=== PATIENT | male | born 1945 | race Caucasian/White ===

== ENCOUNTER 2017-10-11 08:05 | Observation (INO) | payer MEDICARE, BC ==
[2017-10-11] VITALS (290 sets, daily range): BP systolic 112–144; BP diastolic 66–93; PULSE 78–122; TEMP 97.8–98.4; O2SAT 92–100
[~2017-10-11] VITALS: Ht 185.6 cm; Wt 146.6 kg
[2017-10-11] MEDS ORDERED: FLOMAX 0.40.4 MG/CAP PO (08:29)
[2017-10-11] MEDS ORDERED: ELIQUIS 5MG PO (08:29)
[2017-10-11] MEDS ORDERED: LIPITOR20 MG PO (08:31)
[2017-10-11] MEDS ORDERED: LOPRESSOR 550 MG/TAB PO (08:32)
[2017-10-11] MEDS ORDERED: HCTZ 25MG TAB25 MG PO (08:32)
[2017-10-11] MEDS ORDERED: ALEVE 220MG220 MG PO (08:33)
[2017-10-11] MEDS ORDERED: VITAMINC1000TA PO (08:34)
[2017-10-11] MEDS ORDERED: CRANBERRY500 M3 PO (08:34)
[2017-10-11] MEDS ORDERED: MUCINEX 60600 MG/TA1 PO (08:35)
[2017-10-11] MEDS ORDERED: TYLENOL 500MG500 MG PO (08:35)
[2017-10-11 09:08] LABS: HEMOGLOBIN 10.7 g/dl (13.5-18.0); MEAN CELL VOLUME 94 fl (80.0-100.0); MEAN CORPUSCULAR HEMOGLOBIN 32 pg (27.0-31.0); MEAN CORPUSCULAR HGB CONC 34 g/dl (33.0-37.0); MEAN PLATELET VOLUME 9.2 fl (7.4-10.4); PLATELET COUNT 150 K/mm3 (130-400); RED BLOOD COUNT 3.34 M/mm3 (4.20-5.60); REDCELL DISTRIBUTION WIDTH-CV 12.8 % (11.5-14.5)
[2017-10-11 09:11] LABS: HEMATOCRIT 31.4 % (42.0-52.0)
[2017-10-11 09:13] LABS: INR 1.1 (0.8-3.0); PROTHROMBIN TIME 12.9 SECONDS (9.7-12.8)
[2017-10-11 09:16] LABS: CALCIUM 8.9 mg/dL (8.4-10.2); CREATININE, serum 0.93 mg/dL (0.66-1.25); POTASSIUM 4.5 mmol/L (3.4-5.0)
[2017-10-12] VITALS (512 sets, daily range): BP systolic 111–120; BP diastolic 61–86; PULSE 74–101; TEMP 97.3–98.4; O2SAT 87–99
[2017-10-12 06:05] LABS: BASO % 0.4 % (0.0-2.0); EOS # 0.1 (0.0-0.7); EOS % 0.8 % (0-4.0); GRAN # 5.3 (1.4-6.5); GRAN % 69.3 % (42.2-75.2); LYMPH # 1.7 (1.2-3.4); LYMPH % 22.5 % (20.0-51.0); MEAN CELL VOLUME 94 fl (80.0-100.0); MEAN CORPUSCULAR HGB CONC 34 g/dl (33.0-37.0); MEAN PLATELET VOLUME 9.9 fl (7.4-10.4); MONO # 0.5 (0.1-0.6); MONO % 6.7 % (1.7-9.3); PLATELET COUNT 164 K/mm3 (130-400); RED BLOOD COUNT 3.04 M/mm3 (4.20-5.60); REDCELL DISTRIBUTION WIDTH-CV 12.8 % (11.5-14.5)
[2017-10-12 06:07] LABS: HEMATOCRIT 28.5 % (42.0-52.0); HEMOGLOBIN 9.7 g/dl (13.5-18.0); MEAN CORPUSCULAR HEMOGLOBIN 32 pg (27.0-31.0)
[2017-10-12 06:20] LABS: CALCIUM 8.4 mg/dL (8.4-10.2); CREATININE, serum 0.82 mg/dL (0.66-1.25); MAGNESIUM 1.6 mg/dL (1.6-2.3); POTASSIUM 3.5 mmol/L (3.4-5.0)
[2017-10-12] MEDS ORDERED: BRILINTA90 MG PO (10:48)
[2017-10-12] MEDS ORDERED: ASPIRIN 81M81 MG/TA2 PO (10:49)
== END 2017-10-12 13:35 | disposition home or self-care (01) ==
LOC: COL.CAR 08:05 → INPTSU 13:12 → ICU 18:45
PROVIDERS: Internal Medicine Cardiovascular Disease
DX: I25.110 Atherosclerotic heart disease of native coronary artery with unstable angina pectoris (principal); R94.39 Abnormal result of other cardiovascular function study; E78.00 Pure hypercholesterolemia, unspecified; I48.0 Paroxysmal atrial fibrillation; Z79.01 Long term (current) use of anticoagulants; Z95.5 Presence of coronary angioplasty implant and graft; Z88.0 Allergy status to penicillin; Z82.49 Family history of ischemic heart disease and other diseases of the circulatory system
CPT/HCPCS: C1725; C1769; C1874; C1887; C9600; G0378; G0379; J0583; J1644; J2250; J3010; J7030; Q9967

== ENCOUNTER 2017-12-20 19:06 | Inpatient (IN) | payer MEDICARE, BC ==
[2017-12-20] VITALS (92 sets, daily range): BP systolic 117; BP diastolic 70; PULSE 86; TEMP 97.7; O2SAT 97–100
[~2017-12-20] VITALS: Ht 185.4 cm; Wt 144.4 kg
[~2017-12-20 19:06] MED LIST: ALEVE 220MG220 MG PO; ASPIRIN 81M81 MG/TA2 PO; BRILINTA90 MG PO; CRANBERRY500 M3 PO; ELIQUIS 5MG PO; FLOMAX 0.40.4 MG/CAP PO; HCTZ 25MG TAB25 MG PO; LIPITOR20 MG PO; LOPRESSOR 550 MG/TAB PO; MUCINEX 60600 MG/TA1 PO; TYLENOL 500MG500 MG PO; VITAMINC1000TA PO
[2017-12-20] MEDS ORDERED: LANOXIN 0.25M0.25 MG PO (21:54)
[2017-12-20] MEDS ORDERED: PLAVIX 75MG TAB75 MG PO (21:54)
[2017-12-20] MEDS ORDERED: BENADRYL25 M2 PO (21:55)
[2017-12-20] MEDS ORDERED: FLONASEALLERGY NS (21:56)
[2017-12-20] MEDS ORDERED: VENTOLIN0.09 MG IH (21:57)
[2017-12-21] VITALS (432 sets, daily range): BP systolic 98–160; BP diastolic 56–88; PULSE 42–78; TEMP 97.2–98.1; O2SAT 60–100
[2017-12-21 01:45] LABS: TROPONIN-I < 0.012 ng/mL (0.000-0.034)
[2017-12-21 06:01] LABS: BASO % 0.2 % (0.0-2.0); EOS # 0.1 (0.0-0.7); EOS % 0.9 % (0-4.0); GRAN # 6.2 (1.4-6.5); HEMOGLOBIN 11.9 g/dl (13.5-18.0); LYMPH # 1.9 (1.2-3.4); LYMPH % 20.7 % (20.0-51.0); MEAN CELL VOLUME 92 fl (80.0-100.0); MEAN CORPUSCULAR HEMOGLOBIN 30 pg (27.0-31.0); MEAN CORPUSCULAR HGB CONC 32 g/dl (33.0-37.0); MEAN PLATELET VOLUME 9.3 fl (7.4-10.4); MONO # 0.7 (0.1-0.6); MONO % 7.8 % (1.7-9.3); PLATELET COUNT 180 K/mm3 (130-400); RED BLOOD COUNT 3.97 M/mm3 (4.20-5.60); REDCELL DISTRIBUTION WIDTH-CV 12.7 % (11.5-14.5)
[2017-12-21 06:02] LABS: HEMATOCRIT 36.7 % (42.0-52.0)
[2017-12-21 06:11] LABS: ANION GAP 9 mmol/L (7-16); BLOOD UREA NITROGEN 17 mg/dL (9-20); CALCIUM 8.4 mg/dL (8.4-10.2); CARBON DIOXIDE 26 mmol/L (22-30); CHLORIDE 105 mmol/L (98-107); CHOLESTEROL 119 mg/dL (120-200); CHOLESTEROL RISK RATIO 3.8; CREATININE, serum 0.91 mg/dL (0.66-1.25); GLUCOSE 94 mg/dL (74-106); HDL CHOLESTEROL 31 mg/dL; LDL CHOLESTEROL 63 mg/dL; POTASSIUM 4.6 mmol/L (3.4-5.0); SODIUM 140 mmol/L (137-145); TRIGLYCERIDE 124 mg/dL
[2017-12-21 06:28] LABS: TROPONIN-I < 0.012 ng/mL (0.000-0.034)
[2017-12-22] VITALS (607 sets, daily range): BP systolic 124–164; BP diastolic 65–93; PULSE 46–76; TEMP 97.9–98.1; O2SAT 69–100
[2017-12-22 05:54] LABS: BASO % 0.3 % (0.0-2.0); EOS # 0.1 (0.0-0.7); EOS % 0.9 % (0-4.0); GRAN # 6.7 (1.4-6.5); GRAN % 76.2 % (42.2-75.2); HEMOGLOBIN 11.9 g/dl (13.5-18.0); LYMPH # 1.3 (1.2-3.4); LYMPH % 14.8 % (20.0-51.0); MEAN CELL VOLUME 91 fl (80.0-100.0); MEAN CORPUSCULAR HEMOGLOBIN 30 pg (27.0-31.0); MEAN CORPUSCULAR HGB CONC 33 g/dl (33.0-37.0); MEAN PLATELET VOLUME 8.7 fl (7.4-10.4); MONO # 0.6 (0.1-0.6); MONO % 7.3 % (1.7-9.3); PLATELET COUNT 173 K/mm3 (130-400); RED BLOOD COUNT 3.95 M/mm3 (4.20-5.60); REDCELL DISTRIBUTION WIDTH-CV 12.7 % (11.5-14.5)
[2017-12-22 06:07] LABS: CALCIUM 8.2 mg/dL (8.4-10.2); CREATININE, serum 0.97 mg/dL (0.66-1.25); POTASSIUM 4.1 mmol/L (3.4-5.0)
[2017-12-22] MEDS ORDERED: LOPRESSOR 550 MG/TAB PO (12:30)
== END 2017-12-22 13:45 | disposition home or self-care (01) | DRG 247 ==
LOC: IMCU 19:06 → ICU 20:22
PROVIDERS: Nurse Practitioner
PROC: 0270346 Dilation of Coronary Artery, One Artery, Bifurcation, with Drug-eluting Intraluminal Device, Percutaneous Approach (ICD-10-PCS; principal; 2017-12-21)
PROC: B2111ZZ Fluoroscopy of Multiple Coronary Arteries using Low Osmolar Contrast (ICD-10-PCS; 2017-12-21)
DX: I25.110 Atherosclerotic heart disease of native coronary artery with unstable angina pectoris (principal); I48.2 Chronic atrial fibrillation; I10 Essential (primary) hypertension; Z95.5 Presence of coronary angioplasty implant and graft; Z79.01 Long term (current) use of anticoagulants; L89.222 Pressure ulcer of left hip, stage 2
CPT/HCPCS: 99223-AI; 99233-AI; 99239; C1760; C1769; C1874; C1887; C1894; C9600; J0583; J1644; J2250; J3010; J3370; J7050; Q9967

== ENCOUNTER 2018-02-27 08:17 | Inpatient (IN) | payer MEDICARE, BC ==
[~2018-02-27] VITALS: Ht 185.4 cm; Wt 134.6 kg
[2018-02-27] VITALS (630 sets, daily range): BP systolic 97–158; BP diastolic 64–86; PULSE 53–100; TEMP 97.8–98.1; O2SAT 73–100
[~2018-02-27 08:17] MED LIST changes: +BENADRYL25 M2 PO; +FLONASEALLERGY NS; +LANOXIN 0.25M0.25 MG PO; +PLAVIX 75MG TAB75 MG PO; +VENTOLIN0.09 MG IH
[2018-02-27 08:56] LABS: BASO % 0.4 % (0.0-2.0); EOS # 0.1 (0.0-0.7); EOS % 0.6 % (0-4.0); GRAN # 5.9 (1.4-6.5); GRAN % 74.5 % (42.2-75.2); HEMATOCRIT 42.4 % (42.0-52.0); HEMOGLOBIN 13.5 g/dl (13.5-18.0); LYMPH # 1.4 (1.2-3.4); LYMPH % 18.1 % (20.0-51.0); MEAN CELL VOLUME 90 fl (80.0-100.0); MEAN CORPUSCULAR HEMOGLOBIN 29 pg (27.0-31.0); MEAN CORPUSCULAR HGB CONC 32 g/dl (33.0-37.0); MEAN PLATELET VOLUME 9.2 fl (7.4-10.4); MONO # 0.5 (0.1-0.6); MONO % 6.1 % (1.7-9.3); PLATELET COUNT 178 K/mm3 (130-400); RED BLOOD COUNT 4.71 M/mm3 (4.20-5.60); REDCELL DISTRIBUTION WIDTH-CV 13.4 % (11.5-14.5)
[2018-02-27 08:57] LABS: INR 2.7 (0.8-3.0); PROTHROMBIN TIME 30.6 SECONDS (9.7-12.8)
[2018-02-27 09:11] LABS: ALANINE AMINOTRANSFERASE 32 U/L (21-72); ALBUMIN 3.6 gm/dL (3.5-5.0); ALKALINE PHOSPHATASE 72 U/L (50-136); ANION GAP 5 mmol/L (7-16); AST,SGOT 44 U/L (15-37); BILIRUBIN,TOTAL 0.6 mg/dL (0.0-1.0); BLOOD UREA NITROGEN 16 mg/dL (9-20); CALCIUM 8.5 mg/dL (8.4-10.2); CARBON DIOXIDE 30 mmol/L (22-30); CHLORIDE 101 mmol/L (98-107); CREATININE, serum 0.96 mg/dL (0.66-1.25); GLUCOSE 95 mg/dL (74-106); LIPASE 104 U/L (23-300); POTASSIUM 4.2 mmol/L (3.4-5.0); SODIUM 137 mmol/L (137-145)
[2018-02-27 09:22] LABS: TROPONIN-I < 0.012 ng/mL (0.000-0.034)
[2018-02-27] MEDS ORDERED: PRILOSEC 20MG20 MG PO (09:26)
[2018-02-27] MEDS ORDERED: COUMADIN 5MG5 MG/TAB PO (09:27)
[2018-02-27] MEDS ORDERED: BENADRYL25 M2 PO (09:28)
[2018-02-27] MEDS ORDERED: LANOXIN 0.120.125 MG PO (09:29)
[2018-02-28] VITALS (338 sets, daily range): BP systolic 88–151; BP diastolic 53–87; PULSE 42–127; TEMP 97.5–98.5; O2SAT 88–100
[2018-02-28 05:56] LABS: BASO % 0.3 % (0.0-2.0); EOS # 0.1 (0.0-0.7); GRAN # 4.9 (1.4-6.5); GRAN % 69.2 % (42.2-75.2); HEMATOCRIT 39.3 % (42.0-52.0); HEMOGLOBIN 12.9 g/dl (13.5-18.0); LYMPH # 1.6 (1.2-3.4); LYMPH % 21.9 % (20.0-51.0); MEAN CELL VOLUME 89 fl (80.0-100.0); MEAN CORPUSCULAR HEMOGLOBIN 29 pg (27.0-31.0); MEAN CORPUSCULAR HGB CONC 33 g/dl (33.0-37.0); MEAN PLATELET VOLUME 9.2 fl (7.4-10.4); MONO # 0.5 (0.1-0.6); MONO % 7.3 % (1.7-9.3); PLATELET COUNT 158 K/mm3 (130-400); RED BLOOD COUNT 4.42 M/mm3 (4.20-5.60); REDCELL DISTRIBUTION WIDTH-CV 13.3 % (11.5-14.5)
[2018-02-28 06:02] LABS: INR 2.7 (0.8-3.0); PROTHROMBIN TIME 30.7 SECONDS (9.7-12.8)
[2018-02-28 06:11] LABS: ANION GAP 3 mmol/L (7-16); BLOOD UREA NITROGEN 14 mg/dL (9-20); CALCIUM 8.4 mg/dL (8.4-10.2); CARBON DIOXIDE 30 mmol/L (22-30); CHLORIDE 103 mmol/L (98-107); CREATININE, serum 0.81 mg/dL (0.66-1.25); GLUCOSE 90 mg/dL (74-106); POTASSIUM 3.9 mmol/L (3.4-5.0); SODIUM 136 mmol/L (137-145)
[2018-02-28 06:21] LABS: TROPONIN-I < 0.012 ng/mL (0.000-0.034)
[2018-02-28] MEDS ORDERED: PROTONIX 40MG T40 MG PO (11:18)
[2018-02-28] MEDS ORDERED: LOPRESSOR 225 MG/TAB PO (11:18)
[2018-02-28] MEDS ORDERED: NORVASC 5MG5 MG/TAB PO (11:20)
== END 2018-02-28 13:38 | disposition home or self-care (01) | DRG 313 ==
LOC: COL.ER 08:17 → ICU 10:51
PROVIDERS: Emergency Medicine; Physician Assistant
DX: R07.9 Chest pain, unspecified (principal); I48.1 Persistent atrial fibrillation; I42.0 Dilated cardiomyopathy; I25.10 Atherosclerotic heart disease of native coronary artery without angina pectoris; Z79.01 Long term (current) use of anticoagulants; Z23 Encounter for immunization; Z95.5 Presence of coronary angioplasty implant and graft; I10 Essential (primary) hypertension; E78.5 Hyperlipidemia, unspecified; N40.0 Benign prostatic hyperplasia without lower urinary tract symptoms
CPT/HCPCS: 99222-AI; 99239; A9502; J2785

== ENCOUNTER 2018-03-15 15:48 | Observation (INO) | payer MEDICARE, BC ==
[~2018-03-15] VITALS: Ht 185.4 cm; Wt 140.2 kg
[~2018-03-15 15:48] MED LIST changes: +COUMADIN 5MG5 MG/TAB PO; +LANOXIN 0.120.125 MG PO; +LOPRESSOR 225 MG/TAB PO; +NORVASC 5MG5 MG/TAB PO; +PRILOSEC 20MG20 MG PO; +PROTONIX 40MG T40 MG PO
[2018-03-15 15:59] VITALS: BP 116/61; PULSE 77; TEMP 98.1
[2018-03-15] MEDS ORDERED: COUMADIN 22.5 MG/TAB PO (17:06)
[2018-03-15] MEDS ORDERED: TOPROL XL 25MG25 MG PO (17:07)
[2018-03-15] MEDS ORDERED: PRIL40 PO (17:07)
[2018-03-15] MEDS ORDERED: MUCINEX1200 MG PO (17:08)
[2018-03-15 17:24] LABS: BASO % 0.3 % (0.0-2.0); EOS % 0.3 % (0-4.0); GRAN # 5.7 (1.4-6.5); GRAN % 71.8 % (42.2-75.2); HEMOGLOBIN 11.4 g/dl (13.5-18.0); LYMPH # 1.2 (1.2-3.4); LYMPH % 15.8 % (20.0-51.0); MEAN CELL VOLUME 91 fl (80.0-100.0); MEAN CORPUSCULAR HEMOGLOBIN 29 pg (27.0-31.0); MEAN CORPUSCULAR HGB CONC 32 g/dl (33.0-37.0); MEAN PLATELET VOLUME 8.8 fl (7.4-10.4); MONO # 0.9 (0.1-0.6); MONO % 11.5 % (1.7-9.3); PLATELET COUNT 137 K/mm3 (130-400); RED BLOOD COUNT 3.96 M/mm3 (4.20-5.60); REDCELL DISTRIBUTION WIDTH-CV 13.5 % (11.5-14.5)
[2018-03-15 17:25] LABS: HEMATOCRIT 36.2 % (42.0-52.0)
[2018-03-15] MEDS ORDERED: METOPROLOL TART75 MG PO (17:28)
[2018-03-15 17:36] LABS: ALBUMIN 3.2 gm/dL (3.5-5.0); BILIRUBIN,TOTAL 1.1 mg/dL (0.0-1.0); CREATININE, serum 0.96 mg/dL (0.66-1.25); POTASSIUM 4.2 mmol/L (3.4-5.0); TOTAL PROTEIN 6.3 gm/dL (6.4-8.2)
[2018-03-15 17:57] LABS: TROPONIN-I 1.48 ng/mL (0.000-0.034)
[2018-03-15 19:01] VITALS: BP 125/64; PULSE 81; TEMP 99
[2018-03-16 00:15] VITALS: BP 122/65; PULSE 75
[2018-03-16 04:20] VITALS: BP 117/77; PULSE 66
[2018-03-16 06:22] LABS: BASO % 0.3 % (0.0-2.0); EOS # 0.1 (0.0-0.7); EOS % 1.1 % (0-4.0); GRAN # 4.3 (1.4-6.5); GRAN % 65.6 % (42.2-75.2); HEMOGLOBIN 10.8 g/dl (13.5-18.0); LYMPH # 1.5 (1.2-3.4); LYMPH % 22.1 % (20.0-51.0); MEAN CELL VOLUME 92 fl (80.0-100.0); MEAN CORPUSCULAR HEMOGLOBIN 29 pg (27.0-31.0); MEAN CORPUSCULAR HGB CONC 32 g/dl (33.0-37.0); MEAN PLATELET VOLUME 9.4 fl (7.4-10.4); MONO # 0.7 (0.1-0.6); MONO % 10.6 % (1.7-9.3); PLATELET COUNT 150 K/mm3 (130-400); RED BLOOD COUNT 3.73 M/mm3 (4.20-5.60); REDCELL DISTRIBUTION WIDTH-CV 13.6 % (11.5-14.5)
[2018-03-16 06:24] LABS: INR 2.9 (0.8-3.0); PROTHROMBIN TIME 33.5 SECONDS (9.7-12.8)
[2018-03-16 06:26] LABS: HEMATOCRIT 34.2 % (42.0-52.0)
[2018-03-16 06:34] LABS: CALCIUM 8.1 mg/dL (8.4-10.2); CHOLESTEROL RISK RATIO 3.2; CREATININE, serum 0.92 mg/dL (0.66-1.25); POTASSIUM 4.4 mmol/L (3.4-5.0)
[2018-03-16 07:15] LABS: TROPONIN-I 0.837 ng/mL (0.000-0.034)
[2018-03-16 08:00] VITALS: BP 123/68; PULSE 68; TEMP 98.1
[2018-03-16 08:30] VITALS: BP 114/62; PULSE 64; TEMP 97.5
[2018-03-16] MEDS ORDERED: IBU400 MG PO (09:54)
== END 2018-03-16 11:31 | disposition home or self-care (01) ==
LOC: MEDICAL 15:48
PROVIDERS: Physician Assistant
DX: R07.9 Chest pain, unspecified (principal); I48.91 Unspecified atrial fibrillation; I25.10 Atherosclerotic heart disease of native coronary artery without angina pectoris; I89.0 Lymphedema, not elsewhere classified; I10 Essential (primary) hypertension; E78.5 Hyperlipidemia, unspecified; N40.0 Benign prostatic hyperplasia without lower urinary tract symptoms; K21.9 Gastro-esophageal reflux disease without esophagitis; Z95.5 Presence of coronary angioplasty implant and graft; Z79.02 Long term (current) use of antithrombotics/antiplatelets; Z90.49 Acquired absence of other specified parts of digestive tract; Z79.01 Long term (current) use of anticoagulants; Z88.0 Allergy status to penicillin; Z80.1 Family history of malignant neoplasm of trachea, bronchus and lung; Z82.49 Family history of ischemic heart disease and other diseases of the circulatory system
CPT/HCPCS: G0378

== ENCOUNTER 2018-04-20 07:16 | Day surgery (SDC) | payer MEDICARE, BC ==
[~2018-04-20 07:16] MED LIST changes: +COUMADIN 22.5 MG/TAB PO; +IBU400 MG PO; +METOPROLOL TART75 MG PO; +MUCINEX1200 MG PO; +PRIL40 PO; +TOPROL XL 25MG25 MG PO
[2018-04-20 08:39] VITALS: BP 117/63; PULSE 52; TEMP 97.4
[2018-04-20 10:05] VITALS: BP 133/72; PULSE 52
[2018-04-20 10:20] VITALS: BP 135/70; PULSE 56; TEMP 97.8
== END 2018-04-20 11:27 | disposition home or self-care (01) ==
LOC: COL.CAR 07:16
DX: I48.0 Paroxysmal atrial fibrillation (principal); I25.10 Atherosclerotic heart disease of native coronary artery without angina pectoris; I10 Essential (primary) hypertension; Z95.5 Presence of coronary angioplasty implant and graft; Z79.899 Other long term (current) drug therapy; Z79.01 Long term (current) use of anticoagulants; Z79.02 Long term (current) use of antithrombotics/antiplatelets; E66.01 Morbid (severe) obesity due to excess calories; E78.00 Pure hypercholesterolemia, unspecified

== ENCOUNTER 2018-06-18 09:04 | Outpatient (RCR) | payer MEDICARE, BC ==
[2018-07-24] MEDS ORDERED: TOPROL XL100 MG PO (12:54)
[2018-07-24] MEDS ORDERED: TOPROL XL 25MG25 MG PO ×2 (12:54→14:29)
[2018-07-24] MEDS ORDERED: PROTONIX 40MG T40 MG PO (12:55)
[2018-07-24] MEDS ORDERED: PACERONE400 MG PO (14:23)
== END 2018-09-16 | disposition home or self-care (01) ==
LOC: WSST
DX: R13.13 Dysphagia, pharyngeal phase (principal)

== ENCOUNTER → 2018-07-03 | Outpatient (CLI) | payer MEDICARE, BC | LOC: COL.RAD 11:58 | DX: R13.10 Dysphagia, unspecified (principal) ==

== ENCOUNTER 2018-07-24 11:41 | Day surgery (SDC) | payer MEDICARE, BC ==
[~2018-07-24] VITALS: Ht 185.4 cm; Wt 130.0 kg
[2018-07-24 12:46] LABS: HEMATOCRIT 42.9 % (42.0-52.0); HEMOGLOBIN 13.8 g/dl (13.5-18.0); MEAN CELL VOLUME 95 fl (80.0-100.0); MEAN CORPUSCULAR HEMOGLOBIN 30 pg (27.0-31.0); MEAN CORPUSCULAR HGB CONC 32 g/dl (33.0-37.0); MEAN PLATELET VOLUME 9.3 fl (7.4-10.4); PLATELET COUNT 153 K/mm3 (130-400); RED BLOOD COUNT 4.54 M/mm3 (4.20-5.60); REDCELL DISTRIBUTION WIDTH-CV 12.8 % (11.5-14.5)
[2018-07-24] MEDS ORDERED: TOPROL XL 25MG25 MG PO ×2 (12:54→14:29)
[2018-07-24] MEDS ORDERED: TOPROL XL100 MG PO (12:54)
[2018-07-24 12:55] VITALS: BP 125/84; PULSE 85
[2018-07-24] MEDS ORDERED: PROTONIX 40MG T40 MG PO (12:55)
[2018-07-24 13:06] LABS: CALCIUM 8.9 mg/dL (8.4-10.2); CREATININE, serum 1.01 mg/dL (0.66-1.25); POTASSIUM 4.9 mmol/L (3.4-5.0)
[2018-07-24 13:40] LABS: INR 2.3 (0.8-3.0); PROTHROMBIN TIME 25.8 SECONDS (9.7-12.8)
[2018-07-24] MEDS ORDERED: PACERONE400 MG PO (14:23)
[2018-07-24 14:40] VITALS: BP 124/74; PULSE 49
--- NOTE | 2018-07-24 14:40 | NUR ---
Pt returned to EU 11 per bed s/p BURAK/CV. Pt resting well in bed, at bedside.
[2018-07-24 14:55] VITALS: BP 129/76; PULSE 50
[2018-07-24 15:10] VITALS: BP 138/79; PULSE 46
[2018-07-24 15:25] VITALS: BP 134/80; PULSE 47; TEMP 97
[2018-07-24 15:40] VITALS: BP 142/90; PULSE 68
--- NOTE | 2018-07-24 15:40 | NUR ---
Pt has ambulated and troy PO intake s n/v. PIV removed from R AC with catheter intact.
--- NOTE | 2018-07-24 16:00 | NUR ---
Pt discharged per w/c by nurse with .
== END 2018-07-24 16:06 | disposition home or self-care (01) ==
LOC: COL.CAR 11:41
PROVIDERS: Internal Medicine Cardiovascular Disease
DX: I48.1 Persistent atrial fibrillation (principal); I10 Essential (primary) hypertension; E78.5 Hyperlipidemia, unspecified; I25.10 Atherosclerotic heart disease of native coronary artery without angina pectoris; I34.0 Nonrheumatic mitral (valve) insufficiency; I42.0 Dilated cardiomyopathy; E66.01 Morbid (severe) obesity due to excess calories; M19.90 Unspecified osteoarthritis, unspecified site; Z88.0 Allergy status to penicillin; Z90.49 Acquired absence of other specified parts of digestive tract; Z79.02 Long term (current) use of antithrombotics/antiplatelets; Z79.01 Long term (current) use of anticoagulants; Z68.39 Body mass index [BMI] 39.0-39.9, adult
CPT/HCPCS: J2704

== ENCOUNTER 2020-01-14 11:11 | Inpatient (IN) | payer MEDICARE, BC ==
[~2020-01-14] VITALS: Ht 185.4 cm; Wt 122.7 kg
[~2020-01-14 11:11] MED LIST changes: +PACERONE400 MG PO; +TOPROL XL100 MG PO
[2020-01-14] MEDS ORDERED: TYLENOL 8 HR PO ×2 (11:34→16:01)
[2020-01-14] MEDS ORDERED: BENADRYL25 M2 PO (11:34)
[2020-01-14 11:38] LABS: BASO % 0.3 % (0.0-2.0); EOS % 0.2 % (0-4.0); GRAN # 6.2 (1.4-6.5); GRAN % 69.9 % (42.2-75.2); HEMATOCRIT 43.4 % (42.0-52.0); HEMOGLOBIN 14.5 g/dl (13.5-18.0); LYMPH # 2.1 (1.2-3.4); LYMPH % 23.9 % (20.0-51.0); MEAN CELL VOLUME 96 fl (80.0-100.0); MEAN CORPUSCULAR HEMOGLOBIN 32 pg (27.0-31.0); MEAN CORPUSCULAR HGB CONC 33 g/dl (33.0-37.0); MEAN PLATELET VOLUME 9.2 fl (7.4-10.4); MONO # 0.5 (0.1-0.6); MONO % 5.4 % (1.7-9.3); PLATELET COUNT 196 K/mm3 (130-400); RED BLOOD COUNT 4.53 M/mm3 (4.20-5.60); REDCELL DISTRIBUTION WIDTH-CV 12.6 % (11.5-14.5)
[2020-01-14 11:46] LABS: INR 1.1 (0.8-3.0); PROTHROMBIN TIME 11.8 SECONDS (9.7-12.8)
[2020-01-14 11:48] LABS: BILIRUBIN,TOTAL 0.7 mg/dL (0.0-1.0); CREATININE, serum 1.09 (0.66-1.25); PARTIAL THROMBOPLASTIN TIME 35.6 SECONDS (26.0-37.0); POTASSIUM 4.5 mmol/L (3.4-5.0); TOTAL PROTEIN 7.2 gm/dL (6.4-8.2)
[2020-01-14 12:02] LABS: TROPONIN-I 0.041 ng/mL (0.000-0.035)
[2020-01-14 12:18] LABS: TSH w REFLEX 1.07 uIU/mL (0.465-4.680)
[2020-01-14] MEDS ORDERED: PROSCAR 5MG5 MG PO (16:03)
[2020-01-14] MEDS ORDERED: ASPIRIN E.C. 8181 MG PO (16:04)
[2020-01-14 17:06] VITALS: BP 137/67; PULSE 92; TEMP 97.8
--- NOTE | 2020-01-14 17:19 | NUR ---
Pt up to room 358, pt is A&O, independent in room. Pt on tele, afib. Pt denies chest pain, N/V/D, dizziness, SOB. Pt on room air. LAC INT IV flushes w/o complications. HR irregular. Pulses strong bilaterally. LS cta. 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 Feet cool to touch, pulses palpable. Open ulcer covered w/ dressing to Lt hip "from where my belt rubs" per pt. BS active. No further needs expressed at this time. Admission completed.
[2020-01-14 20:53] VITALS: BP 124/73; PULSE 53; TEMP 98.3
--- NOTE | 2020-01-14 21:30 | NUR ---
Troponin increased from 0.049 to 0.060. Notified SORIN Carias. No new orders at this time.
--- NOTE | 2020-01-14 23:41 | NUR ---
Pt resting in bed, denies any pain. Left lower extremity lymphedema, pt states not much feeling in the left leg. left pedal pulses diminished but palpable. Heart sounds regular with S1 and S2 present. lung sounds are clear in all lobes. no other needs at this time.
[2020-01-15] VITALS (10 sets, daily range): BP systolic 101–147; BP diastolic 50–82; PULSE 58–108; TEMP 97.1–98.3
--- NOTE | 2020-01-15 05:27 | NUR ---
Pt sleeping in bed most of the night, did not call for any needs. pt checked on throughout the night and found to be sleeping, will continue to monitor.
[2020-01-15 07:28] LABS: BASO % 0.3 % (0.0-2.0); EOS # 0.1 (0.0-0.7); EOS % 0.8 % (0-4.0); GRAN # 4.3 (1.4-6.5); GRAN % 65.8 % (42.2-75.2); HEMATOCRIT 40.2 % (42.0-52.0); HEMOGLOBIN 13.3 g/dl (13.5-18.0); LYMPH # 1.7 (1.2-3.4); LYMPH % 25.8 % (20.0-51.0); MEAN CELL VOLUME 96 fl (80.0-100.0); MEAN CORPUSCULAR HEMOGLOBIN 32 pg (27.0-31.0); MEAN CORPUSCULAR HGB CONC 33 g/dl (33.0-37.0); MEAN PLATELET VOLUME 9.3 fl (7.4-10.4); MONO # 0.5 (0.1-0.6); MONO % 7.1 % (1.7-9.3); PLATELET COUNT 168 K/mm3 (130-400); RED BLOOD COUNT 4.19 M/mm3 (4.20-5.60); REDCELL DISTRIBUTION WIDTH-CV 12.5 % (11.5-14.5)
[2020-01-15 07:37] LABS: CALCIUM 8.5 mg/dL (8.4-10.2); CREATININE, serum 0.96 (0.66-1.25); MAGNESIUM 1.8 mg/dL (1.6-2.3); POTASSIUM 4.5 mmol/L (3.4-5.0)
--- NOTE | 2020-01-15 11:19 | NUR ---
SW met with the patient to discuss discharge plan. The patient lives in [place] with his , Jenna (ph#[phone]). He reports independence with ADLs and has a cane. The patient's PCP is Dr. Nav Tovar and he receives his medications at [facility] in [place]. He reports no difficulties obtaining his meds. The patient's DPOA-HC is in EMR. His DPOA-HC is his and daughter, Gabbie Barker. The patient plans to return home with his upon discharge. No additional needs at this time.
--- NOTE | 2020-01-15 12:55 | NUR ---
Pt assessment completed and charted. Medications administered per JUL. Pt sitting in bed at this time. A&O, independent in room. Pt has LAC INT IV that flushes w/o difficulty. On room air, breathing is even and unlabored, denies SOB, dizziness, N/V/D. Pulses strong bilaterally. LS cta. LLE w/ chronic lymphadema present, pulse palpable. RLE 2+ edema noted, pulse strong. BS active. Pt had stress test this morning, tolerated well, planning for cardioversion tomorrow. Lt hip ulcer, covered w/ dressing. No further needs expressed at this time. Call light within reach.
--- NOTE | 2020-01-15 19:32 | NUR ---
Pt has had uneventful day. provided w/ toiletries upon request. mag replaced. no further needs. Consent signed for cardioversion tomorrow. report given to JOSE Pedroza.
--- NOTE | 2020-01-15 22:46 | NUR ---
Pt resting in bed, denies pain. lower left leg lymphedema, pt states that there is no feeling in that leg. heart sounds are regular and bradycardic in the 60s. pt denies chest pain or shortness of breath. lung sounds are clear in all lobes. no other needs at this time.
[2020-01-16] VITALS (7 sets, daily range): BP systolic 100–123; BP diastolic 54–71; PULSE 46–91; TEMP 97.5–98
--- NOTE | 2020-01-16 05:21 | NUR ---
Pt sleeping in bed most of the night, did not call for any needs. checked on throughout the night. no needs at this time.
[2020-01-16 07:38] LABS: BASO % 0.3 % (0.0-2.0); EOS % 0.6 % (0-4.0); GRAN # 4.1 (1.4-6.5); GRAN % 65.6 % (42.2-75.2); HEMATOCRIT 41.2 % (42.0-52.0); HEMOGLOBIN 13.7 g/dl (13.5-18.0); LYMPH # 1.7 (1.2-3.4); LYMPH % 26.2 % (20.0-51.0); MEAN CELL VOLUME 96 fl (80.0-100.0); MEAN CORPUSCULAR HEMOGLOBIN 32 pg (27.0-31.0); MEAN CORPUSCULAR HGB CONC 33 g/dl (33.0-37.0); MEAN PLATELET VOLUME 9.6 fl (7.4-10.4); MONO # 0.4 (0.1-0.6); PLATELET COUNT 166 K/mm3 (130-400); REDCELL DISTRIBUTION WIDTH-CV 12.8 % (11.5-14.5)
[2020-01-16 07:50] LABS: CALCIUM 8.5 mg/dL (8.4-10.2); CREATININE, serum 0.86 (0.66-1.25); MAGNESIUM 2.1 mg/dL (1.6-2.3); POTASSIUM 4.2 mmol/L (3.4-5.0)
--- NOTE | 2020-01-16 08:15 | NUR ---
Pt assessment complete. Pt is A/O x4. His breathing is even and unlabored on RA. Pt denies SOB. No chest pain reported. Pt denies palpitations. No dizziness. POC discussed with patient who verbalizes understanding. No needs at this time. Call light within reach.
--- NOTE | 2020-01-16 09:06 | NUR ---
Initial visit; Patient thanked Hedge Fund Manager for looking in on him and keeping him in her prayers. Patient hopes to be discharged today. Hedge Fund Manager wished him well.
[2020-01-16] MEDS ORDERED: BETAPACE 80MG80 MG PO (11:47)
--- NOTE | 2020-01-16 15:00 | NUR ---
Discharge paperwork and instructions reviewed with patient. All questions answered at this time. IV to LAC dc'd catheter tip intact. Pt wheeled out of facility at this time.
== END 2020-01-16 15:15 | disposition home or self-care (01) | DRG 282 ==
LOC: COL.ER 11:11 → MEDICAL 13:57
PROVIDERS: Emergency Medicine; ADMIT Student in an Organized Health Care Education/Training Program
PROC: 5A2204Z Restoration of Cardiac Rhythm, Single (ICD-10-PCS; principal; 2020-01-16)
DX: I48.91 Unspecified atrial fibrillation (principal); I21.A1 Myocardial infarction type 2; I34.0 Nonrheumatic mitral (valve) insufficiency; I89.0 Lymphedema, not elsewhere classified; R00.1 Bradycardia, unspecified; N40.0 Benign prostatic hyperplasia without lower urinary tract symptoms; I10 Essential (primary) hypertension; E78.5 Hyperlipidemia, unspecified; Z79.82 Long term (current) use of aspirin; I25.10 Atherosclerotic heart disease of native coronary artery without angina pectoris; Z95.818 Presence of other cardiac implants and grafts; Z95.5 Presence of coronary angioplasty implant and graft; Z88.0 Allergy status to penicillin
CPT/HCPCS: OP; 99233-AI; 99239; A9500; G0378; J1650; J2704; J2785; J3475

== ENCOUNTER 2021-06-02 09:08 | Day surgery (SDC) | payer MEDICARE, BC ==
[~2021-06-02] VITALS: Ht 185.4 cm; Wt 121.0 kg
[2021-06-02] VITALS (8 sets, daily range): BP systolic 114–133; BP diastolic 67–85; PULSE 54–100; TEMP 98.6
[~2021-06-02 09:08] MED LIST changes: +ASPIRIN E.C. 8181 MG PO; +BETAPACE 80MG80 MG PO; +PROSCAR 5MG5 MG PO; +TYLENOL 8 HR PO
[2021-06-02 10:08] LABS: BASO % 0.5 % (0.0-2.0); EOS % 0.5 % (0.0-4.0); GRAN # 4.3 K/mm3 (1.4-6.5); GRAN % 69.4 % (42.2-75.2); HEMOGLOBIN 11.4 g/dl (13.5-18.0); LYMPH # 1.4 K/mm3 (1.2-3.4); LYMPH % 23.2 % (20.0-51.0); MEAN CELL VOLUME 95 fl (80.0-100.0); MEAN CORPUSCULAR HEMOGLOBIN 30 pg (27-31); MEAN CORPUSCULAR HGB CONC 31 g/dl (33.0-37.0); MEAN PLATELET VOLUME 9.6 fl (7.4-10.4); MONO # 0.4 K/mm3 (0.1-0.6); MONO % 6.2 % (1.7-9.3); PLATELET COUNT 178 K/mm3 (130-400); RED BLOOD COUNT 3.82 M/mm3 (4.20-5.60); REDCELL DISTRIBUTION WIDTH-CV 13.8 % (11.5-14.5)
[2021-06-02 10:12] LABS: HEMATOCRIT 36.3 % (42.0-52.0)
[2021-06-02 10:16] LABS: INR 1.1 (0.8-3.0)
[2021-06-02] MEDS ORDERED: GALZIN50 MG PO (10:18)
[2021-06-02 10:19] LABS: PARTIAL THROMBOPLASTIN TIME 29.5 SECONDS (26.0-37.0)
[2021-06-02] MEDS ORDERED: MAG-OX 400400 MG/TAB PO (10:19)
[2021-06-02] MEDS ORDERED: DIGITEK0.125 MG PO (10:20)
[2021-06-02] MEDS ORDERED: BENADRYL ALLERG25 M2 PO (10:21)
[2021-06-02] MEDS ORDERED: VITAMIN C500 MG PO (10:22)
[2021-06-02] MEDS ORDERED: CARDIZEM CD 12120 MG PO (10:23)
[2021-06-02 10:37] LABS: CALCIUM 8.5 mg/dL (8.4-10.2); CREATININE, serum 1.17 mg/dL (0.72-1.25); POTASSIUM 4.7 mmol/L (3.5-4.5)
[2021-06-02 10:58] LABS: THYROID STIMULATING HORMONE 1.759 uIU/mL (0.350-4.940)
[2021-06-02] MEDS ORDERED: PACERONE200 MG PO (12:11)
--- NOTE | 2021-06-02 17:08 | NUR ---
Reviewed discharge intructions with patient and his . Both verbalized understanding, and patient signed the discharge papers. IV DC'd intact. No redness, edema, heat to site. Patient changed into street clothes, and was escorted from unit in wheelchair and assisted into his car.
== END 2021-06-02 17:31 ==
LOC: COL.CAR 09:08
PROVIDERS: Internal Medicine Cardiovascular Disease
DX: I10 Essential (primary) hypertension (principal); I48.0 Paroxysmal atrial fibrillation; I25.10 Atherosclerotic heart disease of native coronary artery without angina pectoris; G47.33 Obstructive sleep apnea (adult) (pediatric); E78.5 Hyperlipidemia, unspecified; M19.90 Unspecified osteoarthritis, unspecified site; Z90.89 Acquired absence of other organs; Z90.49 Acquired absence of other specified parts of digestive tract; Z79.82 Long term (current) use of aspirin; Z79.899 Other long term (current) drug therapy; Z95.1 Presence of aortocoronary bypass graft; Z80.1 Family history of malignant neoplasm of trachea, bronchus and lung
CPT/HCPCS: J2704

== ENCOUNTER 2021-09-08 09:35 | Day surgery (SDC) | payer MEDICARE, BC ==
[~2021-09-08] VITALS: Ht 185.5 cm; Wt 122.4 kg
[2021-09-08] VITALS (9 sets, daily range): BP systolic 138–176; BP diastolic 58–84; PULSE 45–61; TEMP 97.5–98.8
[~2021-09-08 09:35] MED LIST changes: +BENADRYL ALLERG25 M2 PO; +CARDIZEM CD 12120 MG PO; +DIGITEK0.125 MG PO; +GALZIN50 MG PO; +MAG-OX 400400 MG/TAB PO; +PACERONE200 MG PO; +VITAMIN C500 MG PO
[2021-09-08 10:34] LABS: HEMOGLOBIN 11.4 g/dl (13.5-18.0); MEAN CELL VOLUME 97 fl (80.0-100.0); MEAN CORPUSCULAR HEMOGLOBIN 31 pg (27-31); MEAN CORPUSCULAR HGB CONC 32 g/dl (33.0-37.0); MEAN PLATELET VOLUME 9.4 fl (7.4-10.4); PLATELET COUNT 139 K/mm3 (130-400); RED BLOOD COUNT 3.72 M/mm3 (4.20-5.60); REDCELL DISTRIBUTION WIDTH-CV 13.4 % (11.5-14.5)
[2021-09-08] MEDS ORDERED: TYLENOL 500MG500 MG PO ×2 (10:42→10:43)
[2021-09-08] MEDS ORDERED: PACERONE200 MG PO (10:43)
[2021-09-08] MEDS ORDERED: ASPIRIN 81M81 MG/TA2 PO (10:45)
[2021-09-08] MEDS ORDERED: VITAMIN C500 MG PO (10:45)
[2021-09-08] MEDS ORDERED: FLONASEALLERGY NS (10:46)
[2021-09-08] MEDS ORDERED: MUCINEX 60600 MG/TA1 PO (10:47)
[2021-09-08 10:48] LABS: CALCIUM 8.5 mg/dL (8.4-10.2); CREATININE, serum 1.34 mg/dL (0.72-1.25); POTASSIUM 4.6 mmol/L (3.5-4.5)
[2021-09-08] MEDS ORDERED: PROAIR HFA0.09 MG/AC IH (10:48)
[2021-09-08 10:49] LABS: INR 1.1 (0.8-3.0); PROTHROMBIN TIME 12.1 SECONDS (9.7-12.8)
--- NOTE | 2021-09-08 11:24 | NUR ---
Pt to procedure.
--- NOTE | 2021-09-08 12:16 | NUR ---
SEE MERGE FOR ALL MEDICAITON ADMINISTRATION TIMES/DOSAGES AND INTRA/POST PROCEDURE SEDATION ASSESSMENTS.
--- NOTE | 2021-09-08 13:45 | NUR ---
Patient arrived to room 318 from tree tapping laborer about this time, alert/oriented, vital signs stable, denies pain or discomfort, left upper chest incision site from pacer placement and loop removal / dressings are C/D/I, pacer site is pufffy and tree tapping laborer nurse reported he had some oozing and hematoma stable, ICE applied at this time, LUE immobilizer in place, paced on tele rate 60, he is tolerating PO intake, present at bedside and i discussed plan of care, they verbalized understanding and denied needs at this time, will continue to onitor
--- NOTE | 2021-09-08 17:00 | NUR ---
patient continue to do well post pacer placement, incision site hematoma stable/ soft and no change in size, vitals remain stable, patient denies needs
[2021-09-09 03:59] VITALS: BP 144/61; PULSE 59; TEMP 97.9
--- NOTE | 2021-09-09 05:21 | NUR ---
ASSESSMENT COMPLETE FOR THIS SHIFT. PT RESTING IN BED WATCHING TV. PT DENIED PALPITATIONS, SOB, N,V,D OR DIZZINESS. PT COMPLAINED OF GENERALIZED PAIN, BUT ONLY WANTED HIS BEDTIME DOSE OF TYLENOL. PT FELT THE TYLENOL WAS EFFECTIVE FOR HIS PAIN. INCISION SITES CDI. HEMATOMA SOFT, STABLE WITH NO CHANGE IN SIZE OR DISCOMFORT TO PT. PT EXPRESSED NO OTHER NEEDS AT THIS TIME. CALL LIGHT WITHIN REACH.
[2021-09-09 07:21] VITALS: BP 135/58; PULSE 60; TEMP 98
--- NOTE | 2021-09-09 07:58 | NUR ---
PATIENT RESTING UPRIGHT IN BED. NO COMPLAINTS OF PAIN.
--- NOTE | 2021-09-09 08:00 | NUR ---
SIGNIFICANT LYMPHEDEMA NOTED TO LLE, PT PLEASANT, AOX4, DENIES PAIN, ICE PROVIDED FOR PACER/LOOP SITE, NO DRAINAGE ON DRESSING, SITE SOFT/NONTENDER, NO EDEMA NOTED TO SITE, PT L ARM IN SLING, ASSESSMENT PERFORMED, MEDICATIONS GIVEN, EDUCATED ON PURPOSE OF MEDS, NO OTHER NEEDS
--- NOTE | 2021-09-09 09:26 | NUR ---
Initial visit; Patient thanked Desktop Support Associate for looking in on him, offering God's blessings and keeping him in Desktop Support Associate's prayers.
--- NOTE | 2021-09-09 10:45 | NUR ---
SW met with the patient to discuss discharge plan. The patient lives in [place] with his , Jenna (ph#[phone]). He reports independence with ADLs and has a cane and walker. The patient's PCP is Dr. Nav Tovar and he receives his medications from [facility] in [place]. The patient's DPOA-HC is in EMR and it designates his and his daughter, Gabbie Piña. The patient plans on returning home with his upon discharge. No additional needs at this time. *Discharge plan: home*
[2021-09-09 11:48] VITALS: BP 135/54; PULSE 60; TEMP 98.1
[2021-09-09] MEDS ORDERED: CLEOCIN HC150 MG/CAP PO (12:29)
--- NOTE | 2021-09-09 12:57 | NUR ---
discharge education provided, iv removed, no questions at this time, limited lifting and rom with l arm reviewed, escorted out with belongings and discharge paperwork, no other needs
== END 2021-09-09 12:57 | disposition home or self-care (01) ==
LOC: COL.CAR 09:35 → MEDICAL 12:52 → COL.CAR 09-09 12:57
PROVIDERS: Internal Medicine Cardiovascular Disease
DX: I48.0 Paroxysmal atrial fibrillation (principal); I49.5 Sick sinus syndrome; I25.10 Atherosclerotic heart disease of native coronary artery without angina pectoris; I10 Essential (primary) hypertension; I25.5 Ischemic cardiomyopathy; I25.2 Old myocardial infarction; R42 Dizziness and giddiness; E78.2 Mixed hyperlipidemia; Z79.899 Other long term (current) drug therapy; Z95.5 Presence of coronary angioplasty implant and graft; Z95.818 Presence of other cardiac implants and grafts
CPT/HCPCS: OP; C1785; C1894; C1898; J2250; J3010; J3370; J7030; J7050; Q9967

== ENCOUNTER 2023-05-03 08:31 | Inpatient (IN) | payer MEDICARE, BC ==
[2023-05-03] VITALS (8 sets, daily range): BP systolic 143–186; BP diastolic 64–79; PULSE 59–65; TEMP 97.4–98.3
[~2023-05-03] VITALS: Ht 185.4 cm; Wt 121.8 kg
[~2023-05-03 08:31] MED LIST changes: +CLEOCIN HC150 MG/CAP PO; +PROAIR HFA0.09 MG/AC IH
[2023-05-03] MEDS ORDERED: B-121000 MCG PO (09:43)
[2023-05-03] MEDS ORDERED: IRON TABLETS325 MG PO (09:44)
[2023-05-03 10:37] LABS: CALCIUM 8.5 mg/dL (8.4-10.2); CREATININE, serum 1.38 mg/dL (0.72-1.25); MAGNESIUM 2.1 mg/dL (1.6-2.6); POTASSIUM 4.6 mmol/L (3.5-4.5)
--- NOTE | 2023-05-03 18:50 | NUR ---
resting in bed, bedside shift report received from JOSE Sierra
--- NOTE | 2023-05-03 21:00 | NUR ---
resting in bed, full assessment completed, see interventions for further info, assisted up to bathroom and is able to ambulating into bathroom independently with use of cane, he states he will still call for help when up to bathroom, denies pain or needs
--- NOTE | 2023-05-03 23:08 | NUR ---
appears to be sleepoing, in bed with eyes closed, resp quietly and easy
[2023-05-04] VITALS (13 sets, daily range): BP systolic 130–167; BP diastolic 56–81; PULSE 60–90; TEMP 97.3–98.4
--- NOTE | 2023-05-04 04:53 | NUR ---
has slept off and on throughout the night,
--- NOTE | 2023-05-04 07:05 | NUR ---
bedside shift report given to JOSE Sierra
[2023-05-04 07:15] LABS: CALCIUM 8.4 mg/dL (8.4-10.2); CREATININE, serum 1.26 mg/dL (0.72-1.25); MAGNESIUM 1.8 mg/dL (1.6-2.6); POTASSIUM 4.5 mmol/L (3.5-4.5)
--- NOTE | 2023-05-04 13:03 | NUR ---
D: Initial visit: Tempering Kiln Tender stopped by room on rounds. Pt was eating lunch and content. A: Pt has no needs right now. P: Tempering Kiln Tender informed pt that if he had any needs to let his nurse know. Tempering Kiln Tender will follow up as needed.
--- NOTE | 2023-05-04 15:48 | NUR ---
De Alcholizer met with patient to discuss discharge planning. Patient lives in [place], [place] with his , Jenna (ph#[phone]) and sees Dr. Heidy Kendall for primary care. Patient obtains medications from [facility] in [place] and when asked if he can usually afford his medications, patient stated there are times they have to "watch it". Patient has a cane and walker that belong to him at bedside. Patient is independent with ADLS and plans to return home at time of discharge. Patient advised Jenna is his DPOA-HC. Discharge Plan; Home
--- NOTE | 2023-05-04 20:35 | NUR ---
Patient resting in bed. Assissted patient to bathroom and back to bed. Denies any pain or other needs at this time. IV in left AC fell out. 22G started in right wrist, flushes easily with no complications. Assessment complete. Call light and personal items in reach. Bed in low position and bed alarm on.
[2023-05-05 00:18] VITALS: BP_SYST 167
[2023-05-05 03:38] VITALS: BP 143/76; PULSE 66; TEMP 97.8
[2023-05-05 04:30] VITALS: BP_SYST 143
--- NOTE | 2023-05-05 06:00 | NUR ---
Patient resting in bed with eyes closed. Respirations even and unlabored. No signs of pain or needs at this time. Patient had an uneventful night. Call light and personal items in reach. Bed in low position and bed alarm on.
[2023-05-05 07:01] VITALS: BP 155/83; PULSE 60; TEMP 97.6
[2023-05-05 07:50] LABS: CALCIUM 8.4 mg/dL (8.4-10.2); CREATININE, serum 1.2 mg/dL (0.72-1.25); MAGNESIUM 1.8 mg/dL (1.6-2.6); POTASSIUM 4.8 mmol/L (3.5-4.5)
--- NOTE | 2023-05-05 08:00 | NUR ---
Patient laying in bed, A&Ox4. VSS. IV CDI. Denies pain and discomfort. Call light within reach
[2023-05-05] MEDS ORDERED: NORVASC 5MG5 MG/TAB PO (09:40)
[2023-05-05] MEDS ORDERED: TIKOSYN0.5 MG PO (09:42)
--- NOTE | 2023-05-05 11:08 | NUR ---
Discharge paperwork reviewed with the patient. Patient verbalized an understanding to follow doctors orders. IV removed, tip intact. Gauze and coban applied. Patient waiting on ride home. No further needs expressed. Call light within reach
--- NOTE | 2023-05-05 12:00 | NUR ---
Patient transfered by wheelchair to awaiting vehicle
== END 2023-05-05 12:00 | disposition home or self-care (01) | DRG 310 ==
LOC: MEDICAL 08:38
PROVIDERS: ADMIT Internal Medicine Cardiovascular Disease
DX: I48.0 Paroxysmal atrial fibrillation (principal); I10 Essential (primary) hypertension; E78.5 Hyperlipidemia, unspecified; I89.0 Lymphedema, not elsewhere classified; I25.10 Atherosclerotic heart disease of native coronary artery without angina pectoris; H18.49 Other corneal degeneration; M19.90 Unspecified osteoarthritis, unspecified site; H26.9 Unspecified cataract; Z95.5 Presence of coronary angioplasty implant and graft; Z95.0 Presence of cardiac pacemaker; Z95.818 Presence of other cardiac implants and grafts; Z88.8 Allergy status to other drugs, medicaments and biological substances; Z79.82 Long term (current) use of aspirin; Z79.899 Other long term (current) drug therapy; Z88.0 Allergy status to penicillin; Z23 Encounter for immunization